=== PATIENT | female | born 1940 | race Caucasian/White ===

== ENCOUNTER 2022-12-05 07:48 | Emergency (ER) | payer MEDICARE, OTHER, SELFPAY ==
[2022-12-05] VITALS (31 sets, daily range): BP systolic 146–170; BP diastolic 69–78; PULSE 56–66; RESP 20; O2SAT 92–99; BMI 23.4
--- NOTE | 2022-12-05 08:14 | ED_ITS ---
HPI - Dizziness General Time Seen by Provider: 08:14 Date Seen: 12/05/22 Chief Complaint: Dizziness/Vertigo Stated Complaint: heart concern Time Seen by Provider: 12/05/22 08:14 Source: patient, RN notes reviewed and old records reviewed Mode of arrival: ambulatory Limitations: no limitations History of Present Illness HPI Narrative: Shari is a very pleasant 82-year-old female with history of type 2 diabetes and hypertension who comes to the emergency room for not feeling well and dizziness. Patient notes that she awoke this morning and when she got up to use the bathroom had an episode of dizziness and lightheadedness as well as an unusual feeling in her upper chest and into her neck. This was associated with diaphoresis and some varied mild nausea. She was able to make it to the bathroom but felt unsteady. She came back and sat on her bed and stated she still felt dizzy. She denies feeling like the room was spinning around her or any focal weakness. She notes that this lasted perhaps an hour. This started at 0630 hours. She notes that she is very nervous and worried about her heart as she has type 2 diabetes. She thinks that the dizziness is now gone. She denies any visual changes, buzzing in her ear or recent history of fainting. Patient notes neuropathy in her feet but no other numbness or weakness focally. Patient states that she has actually been doing fairly well lately. She notes the month of October was very challenging for her as she had multiple issues with sinus pressure coughing and cold symptoms. She did do 1 home COVID test and that was negative. She states that her cough would be better 1 day and worse than X but never completely better. This lasted for 1 month. 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 She has now been doing PT and she states that things are much better. She admits that she does not exercise much but states that even that has been improved with physical therapy. At this time patient denies chest pain, shortness of breath. She states that she has not eaten and she is thirsty. Related Data Allergies Allergy/AdvReac Type Severity Reaction Status Date / Time [id number] Reductase Allergy Verified 12/05/22 07:58 Inhibitor Review of Systems Status of ROS: Reports: 10 or more systems reviewed and unremarkable except as noted in History and below Const: Denies: fever, chills, change in weight or fatigue Eyes: Reports: other (Bilateral eye irritation from allergies) ENMT: Reports: neck pain (Pressure with event from this morning now resolved); Denies: throat pain or vertigo Cardio: Reports: chest pain and lightheadedness; Denies: palpitations, edema, swelling of feet/ankles, shortness of breath with exertion or shortness of breath when lying down Resp: Denies: shortness of breath, cough or wheezing GI: Reports: nausea; Denies: abdominal pain, vomiting or diarrhea : Denies: painful urination or urinary frequency Musculo: Reports: neck pain (Pressure with event from this morning now resolved) Integ/Breast: Denies: rash or itching Neuro: Reports: numbness in extremities (Chronic neuropathy in feet) and dizziness; Denies: headache, weakness in extremities, lack of coordination, vertigo, confusion, slurred speech or difficulty communicating thoughts Psych: Reports: anxiety Endo: Denies: fatigue Allergy/Immuno: Denies: wheezing PFSH PFSH Social History Smoking Status: Never smoker Do you use any of these nicotine containing products: None Second hand tobacco smoke exposure: No How often do you have a drink containing alcohol: never How often do you have six or more drinks on one occasion: Never AUDIT-C Alcohol total score: 0 Non-prescribed substance use: denies use service: No Exam Narrative: Exam Narrative: Shari is alert and oriented. She is very nervous and expresses this anxiety. She is moving her head back and forth forward and back without any difficulty. Eyes are clear with full EOM. Head is atraumatic normocephalic. Eyebrow raise smile gritting of the teeth within normal limits tongue is midline. Speech is normal with appropriate content and articulation. Neck is supple without lymph in the adenopathy. Oral cavity with moist mucous membranes. Heart with regular rate and rhythm. I do not auscultate additional murmur rub or clicks. Lungs are clear bilaterally. Abdomen soft nontender. Negative Bianchi sign. Lower extremities without any evidence of edema or calf tenderness with palpation. Pedal pulses are symmetrical Upper extremity strength and motor is intact. Lower extremity strength incoordination motor intact. Const: Vital Signs, click to edit/add: Vital Signs - 24 hr 12/05/22 07:58 12/05/22 08:47 Pulse Rate [Apical ] 61 Respiratory Rate 20 Blood Pressure [Le ft Upper Arm] 164/77 H Pulse Oximetry 98 96 Oxygen Delivery Me thod Room Air Documenting provider has reviewed patient's vital signs: yes Course Course Hospital Course: Differential diagnosis includes but is not limited to acute coronary event, arrhythmia, anxiety, benign positional vertigo, CVA/TIA, electrolyte imbalance, pneumonia, PE. At this time vital signs are reassuring, her symptoms have res olved, initial EKG reassuring, but her anxiety persists. I did explain to share in that we will be getting blood work to include CBC, comprehensive panel, D- dimer, troponin, CRP, lipase, urinalysis. Will also do a chest x-ray given her history of frequent cough cold symptoms for an entire month. Will also check COVID today. Our plan is to recheck troponin and EKG in approximately 3-4 hours. Reevaluation(s) Reevaluation #1: Patient has continued to do well and ordered breakfast. No further complaints. Vital Signs Vital signs: Initial Vital Signs Pulse Rate 61 12/05/22 07:58 Pulse Rhythm Regular 12/05/22 07:58 Respiratory Rate 20 12/05/22 07:58 Blood Pressure 164/77 H 12/05/22 07:58 Blood Pressure Mean 106 H 12/05/22 07:58 Pulse Oximetry 98 12/05/22 07:58 Oxygen Delivery Method Room Air 12/05/22 07:58 Vital Signs Pulse Rate 61 12/05/22 07:58 Respiratory Rate 20 12/05/22 07:58 Blood Pressure 164/77 H 12/05/22 07:58 Pulse Oximetry 98 12/05/22 07:58 Oxygen Delivery Method Room Air 12/05/22 07:58 Pulse Rate 61 12/05/22 07:58 Respiratory Rate 20 12/05/22 07:58 Blood Pressure 164/77 H 12/05/22 07:58 Pulse Oximetry 96 12/05/22 08:47 Oxygen Delivery Method Room Air 12/05/22 07:58 MDM - Dizziness MDM Narrative Medical decision making narrative: 1. Dizziness -resolved. At this time patient had no focal neurological deficits, no evidence of underlying cardiac arrhythmia or acute coronary syndrome and laboratory values were reassuring with a negative troponin and reassuring EKG. At this time I am unable to explain to share in why she felt this way early this morning. She does repeatedly admit that she does have underlying anxiety and she has an upcoming bridge libertarian but feels that she is on schedule to be ready for that. At this time would recommend baby aspirin daily until such time she is able to have a stress test. Patient states that she had a normal stress test 3 years ago but at this time would be unable to tolerate any excessive walking or exercise. I suggest that she have a chemical stress test. She is worried about aspirin use stating that she was told her kidney function is not good. Creatinine today is 0.9. I do think that the benefits of a baby aspirin at this time outweigh the risks at least until she has a stress test that is reassuring without evidence of underlying coronary ischemia or event. 2. Anxiety-patient had stopped Paxil during her episodes of cough and congestion in October. I recommend that she restart as I do think she would benefit from anxiolytics. 3. Disposition -home at this time. We purposefully spread out the troponins to almost 4 hours to ensure that we did not miss any elevation. Patient has been very patient, feeling better looking better and will be discharged home. I did tell her to return to the ER if she has worsening symptoms. Dictation done with voice recognition, and as a result, wrong word or [id number] substitutions may have occurred.? There may be errors in the script that have gone undetected.? Please consider this when interpreting information found in this chart. Medical Records Attestation: I reviewed the patient's medical records. Lab Data Attestation: I reviewed the patient's lab results. Labs: Lab Results 12/05/22 12/05/22 12/05/22 Range/Units 08:18 10:00 11:45 WBC 5.00 (4.50-11.00) K/uL RBC 4.18 (4.00-5.20) m/uL Hgb 12.0 (12.0-16.0) gm/dL Hct 37.0 (33.0-51.0) % MCV 89 (80-100) fL MCH 29 (26-34) pg MCHC 32 (32-36) gm/dL RDW Coeff of Jose 13.6 (11.5-15.5) % Plt Count 342 (140-440) K/uL Neut % (Auto) 66.8 (42.0-72.0) % Lymph % (Auto) 20.4 (20-44) % Garden % (Auto) 6.0 (0.0-11.0) % Eos % (Auto) 4.6 (0.0-7.0) % Baso % (Auto) 0.8 (0.0-3.0) % Neut # (Auto) 3.34 (1.7-7.0) K/uL Lymph # (Auto) 1.02 (0.90-2.90) K/uL Garden # (Auto) 0.30 (0.00-0.90) K/UL Eos # (Auto) 0.23 (0.00-0.50) K/uL Baso # (Auto) 0.04 (0.00-0.30) K/uL D-Dimer Quant (PE/DVT) 0.36 (0.00-0.50) ug/ml Sodium 138 (135-149) mmol/L Potassium 4.2 (3.6-5.1) mmol/L Chloride 105 (96-114) mmol/L Carbon Dioxide 26 (20-32) mmol/L BUN 27 (7-30) mg/dL Creatinine 0.9 (0.5-1.5) mg/dL Estimated Creat Clear 39.20 Estimated GFR 63 ml/min Glucose 186 H (60-115) mg/dL Calcium 9.9 (8.4-10.6) mg/dL Total Bilirubin 0.4 (0.1-1.5) mg/dL AST 21 (12-35) U/L ALT 20 (4-35) U/L Alkaline Phosphatase 96 (40-150) U/L C-Reactive Protein 0.6 (0.5-1.0) mg/dL Total Protein 7.6 (6.0-8.3) g/dL Albumin 4.4 (3.3-5.0) g/dL Lipase 286 (23-300) U/L Urine Color Yellow (Yellow) Urine Appearance Clear (Clear) Urine pH 7.0 (5.0-8.5) Ur Specific [place] 1.020 (1.000-1.030) Urine Protein Trace A (Negative) Urine Glucose (UA) Negative (Negative) Urine Ketones Negative (Negative) Urine Blood Negative (Negative) Urine Nitrite Positive A (Negative) Urine Bilirubin Negative (Negative) Urine Urobilinogen 0.2 (0.2-1.0) Ur Leukocyte Esterase Negative (Negative) Urine RBC 0-2 (0-2) Urine WBC 0-2 (0-5) Ur Squamous Epith Cells Few (None-Few) Urine Bacteria Many A (None) SARS-CoV-2 (PCR) Negative SARS-CoV-2 (Negative) POC Troponin I 0.00 L (0.01-0.04) ng/ml 12/05/22 Range/Units 12:15 WBC (4.50-11.00) K/uL RBC (4.00-5.20) m/uL Hgb (12.0-16.0) gm/dL Hct (33.0-51.0) % MCV (80-100) fL MCH (26-34) pg MCHC (32-36) gm/dL RDW Coeff of Jose (11.5-15.5) % Plt Count (140-440) K/uL Neut % (Auto) (42.0-72.0) % Lymph % (Auto) (20-44) % Garden % (Auto) (0.0-11.0) % Eos % (Auto) (0.0-7.0) % Baso % (Auto) (0.0-3.0) % Neut # (Auto) (1.7-7.0) K/uL Lymph # (Auto) (0.90-2.90) K/uL Garden # (Auto) (0.00-0.90) K/UL Eos # (Auto) (0.00-0.50) K/uL Baso # (Auto) (0.00-0.30) K/uL D-Dimer Quant (PE/DVT) (0.00-0.50) ug/ml Sodium (135-149) mmol/L Potassium (3.6-5.1) mmol/L Chloride (96-114) mmol/L Carbon Dioxide (20-32) mmol/L BUN (7-30) mg/dL Creatinine (0.5-1.5) mg/dL Estimated Creat Clear Estimated GFR ml/min Glucose (60-115) mg/dL Calcium (8.4-10.6) mg/dL Total Bilirubin (0.1-1.5) mg/dL AST (12-35) U/L ALT (4-35) U/L Alkaline Phosphatase (40-150) U/L C-Reactive Protein (0.5-1.0) mg/dL Total Protein (6.0-8.3) g/dL Albumin (3.3-5.0) g/dL Lipase (23-300) U/L Urine Color (Yellow) Urine Appearance (Clear) Urine pH (5.0-8.5) Ur Specific [place] (1.000-1.030) Urine Protein (Negative) Urine Glucose (UA) (Negative) Urine Ketones (Negative) Urine Blood (Negative) Urine Nitrite (Negative) Urine Bilirubin (Negative) Urine Urobilinogen (0.2-1.0) Ur Leukocyte Esterase (Negative) Urine RBC (0-2) Urine WBC (0-5) Ur Squamous Epith Cells (None-Few) Urine Bacteria (None) SARS-CoV-2 (PCR) (Negative) POC Troponin I 0.00 L (0.01-0.04) ng/ml Imaging Data Chest x-ray: Attestation: I have reviewed the pertinent imaging results. Radiologist's impression: ardiovascular and mediastinum: Mild cardiomegaly with aortic tortuosity and atherosclerotic calcification. Lungs and pleural space: No pleural effusion or pneumothorax. Likely prominent pericardial fat pad on the left. No focal consolidation. Bones and soft tissues: Bilateral glenohumeral osteoarthritis. ECG Data Attestation: I personally reviewed and interpreted this ECG as follows: ECG interpretation date: 12/05/22 Interpretation: EKG by my read shows sinus rhythm at a rate of 63. QT and OR intervals normal. Moderate R-wave progression. I do not note any acute T-wave or ST segment abnormality Discharge Plan Discharge Clinical Impression: Anxiety, Atypical chest pain Patient Disposition: Home, Self-Care Condition: Improved Additional Instructions: 1. Start baby aspirin 1 at night before bed until you are able to schedule your stress test. 2. Follow-up with your primary MD for a stress test-it would be okay if it was this was a chemical stress test as you may not be able to tolerate walking on the treadmill 3. Return for worsening symptoms Today, we did not find any evidence of a heart attack, cardiac arrhythmia, pneumonia, electrolyte imbalance or pulmonary embolism. Your urine did not show a bladder infection but we will culture the sample and if positive for a UTI we will call you. Follow Up/Referrals: Symone Lara MD [Staff Physician] - Stand Alone Forms: [employer] Info Instructions
[2022-12-05 08:48] LABS: Basophils Absolute Auto 0.04 K/uL (0.00-0.30); Basophils Percent Auto 0.8 % (0.0-3.0); Eosinophils Absolute Auto 0.23 K/uL (0.00-0.50); Eosinophils Percent Auto 4.6 % (0.0-7.0); Immature Granulocytes Abs Auto 0.07 K/uL (0.00-0.30); Immature Granulocytes Pct Auto 1.4 %; Lymphocytes Absolute Auto 1.02 K/uL (0.90-2.90); Lymphocytes Percent Auto 20.4 % (20-44); Mean Corpuscular HGB Conc 32 gm/dL (32-36); Mean Corpuscular Hemoglobin 29 pg (26-34); Mean Corpuscular Volume 89 fL (80-100); Neutrophils Absolute Auto 3.34 K/uL (1.7-7.0); Neutrophils Percent Auto 66.8 % (42.0-72.0); Platelet Count* 342 K/uL (140-440); RDW Coefficient of Variation % 13.6 % (11.5-15.5); Red Blood Count 4.18 m/uL (4.00-5.20)
[2022-12-05 08:59] LABS: Slide Review Reflex No
--- NOTE | 2022-12-05 08:59 | CRLHL7_ITS ---
For Patients: As a result of the Century Cures Act, medical imaging exams and procedure reports are released immediately into your electronic medical record. You may view this report before your referring provider. If you have questions, please contact your health care provider. Indication: Chest pain Technique: Chest 1 view Comparison: None Findings/Impression: Cardiovascular and mediastinum: Mild cardiomegaly with aortic tortuosity and atherosclerotic calcification. Lungs and pleural space: No pleural effusion or pneumothorax. Likely prominent pericardial fat pad on the left. No focal consolidation. Bones and soft tissues: Bilateral glenohumeral osteoarthritis. Dictated by Anil Bentley MD @ 12/05/2022 9:56:34 AM (Electronically Signed)
[2022-12-05 09:05] LABS: Chloride* 105 mmol/L (96-114)
[2022-12-05 09:06] LABS: Albumin* 4.4 g/dL (3.3-5.0); Potassium* 4.2 mmol/L (3.6-5.1); Sodium* 138 mmol/L (135-149)
[2022-12-05 09:08] LABS: Creatinine* 0.9 mg/dL (0.5-1.5); Estimated Glomerular Filt Rate 63 ml/min
[2022-12-05 09:09] LABS: Alanine Aminotransferase* 20 U/L (4-35); Alkaline Phosphatase* 96 U/L (40-150); Aspartate Amino Transferase* 21 U/L (12-35); Bilirubin Total* 0.4 mg/dL (0.1-1.5); Blood Urea Nitrogen* 27 mg/dL (7-30); Calcium* 9.9 mg/dL (8.4-10.6); Carbon Dioxide* 26 mmol/L (20-32); Glucose* 186 mg/dL (60-115); Lipase* 286 U/L (23-300); Total Protein* 7.6 g/dL (6.0-8.3)
[2022-12-05 09:12] LABS: C Reactive Protein* 0.6 mg/dL (0.5-1.0); D Dimer Quantitative* 0.36 ug/ml (0.00-0.50)
[2022-12-05 10:54] LABS: SARS PCR* Negative SARS-CoV-2 (Negative)
[2022-12-05 11:58] LABS: Appearance Urine Clear (Clear); Bilirubin Urine Negative (Negative); Blood Urine Negative (Negative); Color Urine Yellow (Yellow); Glucose Urine Negative (Negative); Ketones Urine Negative (Negative); Leukocyte Esterase Urine Negative (Negative); Nitrite Urine Positive (Negative); Protein Urine Trace (Negative); Urobilinogen Urine 0.2 (0.2-1.0)
[2022-12-05 12:05] LABS: Bacteria Urine Many; RBC Urine 0-2 (0-2); Squamous Epithelial Cell Urine Few (None-Few); WBC Urine 0-2 (0-5)
== END 2022-12-05 13:43 | disposition home or self-care (01) ==
PROVIDERS: Emergency Provider Family Medicine; PCP Family Medicine
DX: F41.9 Anxiety disorder, unspecified (principal); R07.89 Other chest pain
CPT/HCPCS: 36415; 71045; 80053; 81001; 83690; 84484; 85025; 85379; 86140; 87086; 87186; 87635; 93005; 94761; 99284; 99285

== ENCOUNTER 2023-01-12 10:30 | Outpatient (RCR) | payer MEDICARE, OTHER, SELFPAY | END 2023-05-12 23:59 | disposition home or self-care (01) | PROVIDERS: PCP Family Medicine; Visit Provider Family Medicine | DX: M47.818 Spondylosis without myelopathy or radiculopathy, sacral and sacrococcygeal region (principal); Z51.89 Encounter for other specified aftercare; M53.3 Sacrococcygeal disorders, not elsewhere classified; M62.81 Muscle weakness (generalized) | CPT/HCPCS: 97110; 97140; 97162 ==

== ENCOUNTER 2025-02-17 09:45 | Outpatient (RCR) | payer MEDICARE, OTHER, SELFPAY | END 2025-02-17 12:34 | disposition home or self-care (01) | PROVIDERS: PCP Family Medicine; Visit Provider Family Medicine | DX: M25.552 Pain in left hip (principal); Z51.89 Encounter for other specified aftercare | CPT/HCPCS: 97110; 97140; 97162 ==